=== PATIENT | male | born 2000 | race Caucasian/White ===

== ENCOUNTER 2024-06-28 19:50 | Emergency (ER) | payer BC ==
[2024-06-28] MEDS: Naproxen 500 MG Tab PO ONE (20:23)
== END 2024-06-28 21:24 | disposition home or self-care (01) ==
LOC: JD.ED 19:50
DX: S00.83XA Contusion of other part of head, initial encounter (principal); Z79.899 Other long term (current) drug therapy; Y04.8XXA Assault by other bodily force, initial encounter
CPT/HCPCS: 99283; A9270

== ENCOUNTER 2024-11-20 15:27 | Emergency (ER) | payer MEDICAID ==
[2024-11-20 16:58] LABS: BASOPHILS ABSOLUTE AUTO 0.0 K/mm3 (0.0-0.2); BASOPHILS PERCENT AUTO 0.3 % (0.0-1.0); EOSINOPHILS ABSOLUTE AUTO 0.0 K/mm3 (0.0-0.4); EOSINOPHILS PERCENT AUTO 0.1 % (0.0-6.0); IMMATURE GRAN ABSOLUTE AUTO 0.07 K/mm3 (0.00-0.05); IMMATURE GRAN PERCENT AUTO 0.6 % (0.0-0.4); LYMPHOCYTES ABSOLUTE AUTO 0.9 K/mm3 (1.0-4.8); LYMPHOCYTES PERCENT AUTO 7.9 % (24.0-44.0); MEAN PLATELET VOLUME 8.9 fl (9.4-12.4); MONOCYTES ABSOLUTE AUTO 0.6 K/mm3 (0.0-0.8); MONOCYTES PERCENT AUTO 5.0 % (0.0-8.0); NEUTROPHILS ABSOLUTE AUTO 10.2 K/mm3 (1.8-7.7); NEUTROPHILS PERCENT AUTO 86.1 % (41.0-71.0); NRBC ABSOLUTE 0.00 (0.00-0.02); NRBC PERCENT 0.0 % (0.0-0.2); PLATELET COUNT,PLT 307 K/mm3 (150-400); RED BLOOD CELL COUNT 5.54 M/mm3 (4.52-5.90); WHITE BLOOD CELL COUNT,WBC 11.89 K/mm3 (3.9-11.3)
[2024-11-20] MEDS: Sodium Chloride 0.9% 10 ML Syringe FLUSH PRN (17:18)
[2024-11-20 17:27] LABS: A/G RATIO 1.4 (1-2); ALANINE AMINOTRANSFERASE,ALT 31.0 U/L (16-63); ASPARTATE AMNIOTRANSFERASE,AST 20.0 U/L (15-37); BILIRUBIN TOTAL 1.0 mg/dL (0.2-1.0); BLOOD UREA NITROGEN,BUN 10.0 mg/dL (7-18); CARBON DIOXIDE,CO2 24.0 mEq/L (21-32); CHLORIDE,CL 103.0 mEq/L (98-107); CREATININE 0.9 mg/dL (0.7-1.3); EST CRCL DRUG DOSING (CG) 144.61 mL/min; ESTIMATED GFR 121.0 mL/min (>60); GLUCOSE RANDOM 101.0 mg/dL (70-99); POTASSIUM,K 3.9 mEq/L (3.5-5.1); PROTEIN TOTAL,TP 7.5 g/dl (6.4-8.2); SODIUM,NA 142.0 mEq/L (136-145)
[2024-11-20 17:45] LABS: APPEARANCE,URINE CLEAR (Clear); GLUCOSE,URINE NEGATIVE (Negative); OCCULT BLOOD,URINE NEGATIVE (Negative)
[2024-11-20 17:52] LABS: EPITHELIAL CELLS,URINE 0-5 /hpf (0-5)
== END 2024-11-20 20:25 | disposition home or self-care (01) ==
LOC: JD.ED 15:27
DX: S42.022A Displaced fracture of shaft of left clavicle, initial encounter for closed fracture (principal); I10 Essential (primary) hypertension; Z79.899 Other long term (current) drug therapy; W01.198A Fall on same level from slipping, tripping and stumbling with subsequent striking against other object, initial encounter
CPT/HCPCS: 36415; 70450; 70450-26; 71045; 71045-26; 72125; 72125-26; 73000-26-LT; 73000-LT; 73060-26-LT; 73060-LT; 80053; 81001; 83690; 85025; 96374; 96376; 99284; 99284-25; J1171

== ENCOUNTER 2024-11-25 08:07 | Day surgery (SDC) | payer MEDICAID ==
[2024-11-25] MEDS ORDERED: Lactated Ringers 1,000 ML IV ONE (08:08)
[2024-11-25] MEDS ORDERED: Midazolam 1 MG/ML 2 ML SDV ONE (08:51)
[2024-11-25] MEDS ORDERED: Glycopyrrolate 0.2 MG/ML 2 ML SDV ONE (08:51)
[2024-11-25] MEDS ORDERED: fentaNYL 100 MCG/2 ML SDV ONE ×2 (08:51→10:00)
[2024-11-25] MEDS ORDERED: Ropivacaine 0.5% 5 MG/ML 30 ML SDV ONE (08:51)
[2024-11-25] MEDS ORDERED: propofoL 500 MG/50 ML 50 ML ONE (09:19)
[2024-11-25] MEDS ORDERED: Dexamethasone 4 MG/ML 5 ML MDV ONE (10:08)
[2024-11-25] MEDS ORDERED: Ondansetron 4 MG/2 ML SDV ONE (10:08)
[2024-11-25] MEDS ORDERED: Ondansetron 4 MG/2 ML SDV IVPUSH PRN (10:20)
[2024-11-25] MEDS ORDERED: Lactated Ringers 1,000 ML ONE (10:21)
[2024-11-25] MEDS: Ketorolac 30 MG/ML SDV IVPUSH PRN (10:47)
[2024-11-25] MEDS: fentaNYL 100 MCG/2 ML SDV IVPUSH PRN (11:09)
[2024-11-25] MEDS: Acetaminophen/HYDROcodone 325-5 MG Tab PO PRN (11:51)
== END 2024-11-25 13:50 | disposition home or self-care (01) ==
LOC: JD.SDS 08:07
PROVIDERS: ATTEND Orthopaedic Surgery
DX: S42.022A Displaced fracture of shaft of left clavicle, initial encounter for closed fracture (principal); Z79.899 Other long term (current) drug therapy
CPT/HCPCS: 76000; 76000-26; 96372; 99282; 99283; A9270-GY; C1713; J0690; J1100; J1171; J1596; J1885; J2003; J2250; J2405; J2704; J2795; J3010; J7120

== ENCOUNTER 2024-11-25 23:37 | Emergency (ER) | payer MEDICAID | END 2024-11-26 00:18 | disposition home or self-care (01) | LOC: JD.ED 23:37 | DX: G89.18 Other acute postprocedural pain (principal); M25.512 Pain in left shoulder; I10 Essential (primary) hypertension; F17.210 Nicotine dependence, cigarettes, uncomplicated; Z79.899 Other long term (current) drug therapy | CPT/HCPCS: 96372; 99282; 99283; J1171 ==